=== PATIENT | male | born 1955 | race Caucasian/White ===

== ENCOUNTER 2016-12-14 18:53 | Emergency (ER) | payer OTHER | END 2016-12-14 21:03 | disposition left against medical advice (07) | LOC: UCCORT 18:53 | DX: R05 Cough (principal); Z53.21 Procedure and treatment not carried out due to patient leaving prior to being seen by health care provider | CPT/HCPCS: 99211; G0463 ==

== ENCOUNTER 2016-12-15 09:02 | Emergency (ER) | payer OTHER ==
[2016-12-15 09:34] VITALS: BP 132/81
--- NOTE | 2016-12-15 10:25 | UC ---
Throat Pain/Nasal Rohan HPI - HPI Summary HPI Summary: complaint of cough , nasal congestion that started 6 days ago cough with some white sputum occasionally entire body and muscles aches N/V on the first day of illness which has resolved sometimes his ears are painful, sore throat, denies headaches, denies fever abut has had some chills taking alkaseptzer and mucinex and cough dropswithout relief - History of Current Complaint Chief Complaint: UCRespiratory Stated Complaint: CONGESTION/COUGH Time Seen by Provider: 12/15/16 10:20 Hx Obtained From: Patient - Allergies/Home Medications Allergies/Adverse Reactions: Allergies Allergy/AdvReac Type Severity Reaction Status Date / Time No Known Allergies Allergy Verified 12/15/16 09:27 Home Medications: Home Medications Vitamin [id number] [Vitamin C & D3/Char Hips] 1 cap PO DAILY [History Confirmed 12/15/16] PMH/Surg Hx/FS Hx/Imm Hx Previously Healthy: Yes Cardiovascular History Of: Reports: Cardiac Disorders - CAD, Hypertension Respiratory History Of: Reports: COPD - Surgical History Surgical History: Yes Surgery Procedure, Year, and Place: R TKR--06/2016. BACK SX. APPY. CARDIAC STENT - Family History Known Family History: Positive: Cardiac Disease, Hypertension Negative: Diabetes - Social History Occupation: Employed Full-time Lives: With Family Alcohol Use: Weekly Substance Use Type: None Smoking Status (MU): Former Smoker Have You Smoked in the Last Year: No When Did the Patient Quit Smoking/Using Tobacco: 2005 - Immunization History Most Recent Influenza Vaccination: Not the Season Review of Systems Constitutional: Fever, Chills, Fatigue Skin: Negative Eyes: Negative ENT: Sore Throat, Nasal Discharge Respiratory: Cough Cardiovascular: Negative Gastrointestinal: Negative Genitourinary: Negative Motor: Negative Neurovascular: Negative Musculoskeletal: Myalgia Neurological: Negative Psychological: Negative All Other Systems Reviewed And Are Negative: Yes Physical Exam Triage Information Reviewed: Yes Appearance: No Pain Distress, Well-Nourished Vital Signs: Initial Vital Signs Temp 97.6 F 12/15/16 09:25 Pulse 92 12/15/16 09:25 Resp 18 12/15/16 09:25 BP 132/81 12/15/16 09:25 Pulse Ox 96 12/15/16 09:25 Vital Signs Reviewed: Yes Eyes: Positive: Conjunctiva Clear ENT: Positive: Pharyngeal erythema, Nasal congestion, Nasal drainage, TMs normal Neck: Positive: No Lymphadenopathy Respiratory: Positive: No respiratory distress, No accessory muscle use, Wheezing - wheezing throughout ll montes Cardiovascular: Positive: RRR, No Murmur, Pulses Normal Abdomen Description: Positive: Nontender, Soft Bowel Sounds: Positive: Present Musculoskeletal: Positive: No Edema Neurological: Positive: Alert Psychological Exam: Normal Skin Exam: Normal Re-Evaluation - Re-Evaluation First Eval Re-Evaluation Time: 10:55 Change: Improved Comment: less wheezing and air movement Throat Pain/Nasal Course/Dx - Course Course Of Treatment: exam completed. duoneb treatment given d/t wheezing throughout. will treat for COPD exacerabation following viral illness/most likely influenza- followup with PCP - Differential Dx/Diagnosis Differential Diagnosis/HQI/PQRI: Influenza, URI, Other - COPD excerbation Provider Diagnoses: COPD excerbation Discharge - Discharge Plan Condition: Stable Disposition: HOME Prescriptions: Albuterol HFA INHALER* [Ventolin HFA Inhaler*] 2 puff INH Q4H PRN #1 mdi PRN Reason: Wheezing Azithromycin TAB* [Zithromax TAB (Z-YSEI) 250 mg #6 tabs] 2 tab PO .TODAY, THEN 1 DAILY #1 yesi predniSONE TAB* [Deltasone TAB*] 50 mg PO DAILY #5 tab Patient Education Materials: COPD (Chronic Obstructive Pulmonary Disease) (ED) Forms: *Work Release Referrals: Aziza Davidson PA [Primary Care Provider] - Additional Instructions: Please take antibiotic as directed Use your albuterol inhaler every 4-6 hours when needed for wheezing, shortness of breath or uncontrolled coughing. Increase fluids and rest Take acetaminophen or ibuprofen for fever or pain Please review your discharge instructions. If your symptoms do not improve please call your primary care provider or return to urgent care.
[2016-12-15] MEDS ORDERED: Albuterol/Ipratropium NEB.SOL* Albuterol 2.5 MG/Ipratropium 0.5 MG 3 ML INH ONE (10:28)
== END 2016-12-15 11:10 | disposition home or self-care (01) ==
LOC: UCCORT 09:02
DX: J44.1 Chronic obstructive pulmonary disease with (acute) exacerbation (principal); Z87.891 Personal history of nicotine dependence
CPT/HCPCS: 99212; A9270-GY; G0463

== ENCOUNTER 2018-07-01 19:02 | Emergency (ER) | payer OTHER ==
[2018-07-01 19:31] VITALS: BP 136/79
[2018-07-01] MEDS ORDERED: Lidocaine 1% MPF* 2 ML VIAL INJ ONE ×2 (19:47→20:13)
--- NOTE | 2018-07-01 19:53 | UC ---
Laceration HPI - HPI Summary HPI Summary: Patient states he was cutting a cabbage about an hour ago prior to arrival. Knife slipped and he cut his third finger on left hand. He is currently taking aspirin and eliquis due to atrial fibrillation, which was finally controlled in April after cardiac ablation. The Bleeding was effectively controlled with compressive bandage. Patient denies any pain at the moment. - History Of Current Complaint Chief Complaint: UCLaceration Stated Complaint: FINGER LACERATION Time Seen by Provider: 07/01/18 19:32 Hx Obtained From: Patient Laceration Location: Finger Mechanism Of Injury: Sharp Trauma Onset/Duration: Sudden Onset, Lasting Hours Severity: Mild Pain Intensity: 2 Aggravating Factors: Nothing - Allergies/Home Medications Allergies/Adverse Reactions: Allergies Allergy/AdvReac Type Severity Reaction Status Date / Time No Known Allergies Allergy Verified 07/01/18 19:31 Home Medications: Home Medications Apixaban* [Eliquis*] 5 mg PO DAILY 07/01/18 [History Confirmed 07/01/18] Aspirin 81 mg CHEW TAB* 81 mg DAILY 07/01/18 [History Confirmed 07/01/18] Diltiazem CD CAP* [Cardizem CD CAP*] 120 mg PO DAILY 07/01/18 [History Confirmed 07/01/18] Furosemide TAB* [Lasix TAB*] 40 mg PO DAILY 07/01/18 [History Confirmed 07/01/18 ] Metoprolol Succinate [Toprol Xl] 100 mg PO DAILY 07/01/18 [History Confirmed ] Rosuvastatin Calcium 10 mg PO DAILY 07/01/18 [History Confirmed 07/01/18] Spironolactone TAB* [Aldactone TAB*] 100 mg PO DAILY 07/01/18 [History Confirmed 07/01/18] PMH/Surg Hx/FS Hx/Imm Hx Previously Healthy: Yes Endocrine History: Dyslipidemia Cardiovascular History: Cardiac Disease, Hypertension, Atrial Fibrillation GI/ History: Gastroesophageal Reflux - Surgical History Surgical History: Yes Surgery Procedure, Year, and Place: R TKR--06/2016. BACK SX. APPY. CARDIAC STENT. Cardiac ablation 04/2018 - Family History Known Family History: Positive: Cardiac Disease, Hypertension Negative: Diabetes - Social History Alcohol Use: Weekly Substance Use Type: None Smoking Status (MU): Former Smoker Have You Smoked in the Last Year: No When Did the Patient Quit Smoking/Using Tobacco: 2005 - Immunization History Most Recent Influenza Vaccination: Not the 2015/2016 Season Review of Systems Constitutional: Negative Skin: Other - laceration All Other Systems Reviewed And Are Negative: Yes Physical Exam Triage Information Reviewed: Yes Appearance: Well-Appearing, No Pain Distress, Well-Nourished Vital Signs: Initial Vital Signs Temp 97.8 F 07/01/18 19:24 Pulse 55 07/01/18 19:24 Resp 18 07/01/18 19:24 BP 136/79 07/01/18 19:24 Pulse Ox 98 07/01/18 19:24 Vital Signs Reviewed: Yes Eyes: Positive: Conjunctiva Clear ENT: Positive: Hearing grossly normal Respiratory: Positive: Chest non-tender, Lungs clear, Normal breath sounds, No respiratory distress Cardiovascular: Positive: RRR, No Murmur, Pulses Normal, Brisk Capillary Refill Musculoskeletal: Positive: Strength Intact, ROM Intact, No Edema, Other: - flexion and extension of fingers preserved. Capillary refill brisk, ulnar and radial pulses present. Skin Exam: Other - laceration on the third finger of left hand 1.5 cm in length on the ventral aspect of distal phalanx. No active bleeding Laceration Repair - Laceration Repair 1 Description: Linear Laceration Size After Repair: Length (cm) - 2cm Modified For Repair: No Anesthesia Used: 1.0% Lido Cleansing Completed Via Routine Prep: Yes Irrigation With Pressure Irrigation Device: No Closure Material: Sutures Closure Method: Single Layer Suture Of: Skin Suture Type: Prolene Laceration Course/Dx - Course/Dx Course Of Treatment: Laceration was 2cm in length, was repaired with 4 sutures ethicon 6. Patient tolerated procedure well. Dermabond applied after sutures. Instructed to come back to urgent care for suture removal in one week. - Differential Dx - Laceration/Wound Provider Diagnoses: Laceration third finger of left hand Discharge - Sign-Out/Discharge Documenting (check all that apply): Patient Departure All imaging exams completed and their final reports reviewed: No Studies - Discharge Plan Condition: Stable Disposition: HOME Patient Education Materials: Laceration (ED), Care For Your Stitches (DC) Referrals: Sylvain Hilton MD [Primary Care Provider] - Additional Instructions: please return to urgent care in 1 week for wound checkup and suture removal - Billing Disposition and Condition Condition: STABLE Disposition: Home Images Hands: 1 - linear laceration 2cm in length
[2018-07-01] MEDS ORDERED: Lidocaine 1%* 5 ML VIAL INJ ONE (20:41)
== END 2018-07-01 21:05 | disposition home or self-care (01) ==
LOC: UCCORT 19:02
DX: S61.213A Laceration without foreign body of left middle finger without damage to nail, initial encounter (principal); W26.0XXA Contact with knife, initial encounter; Y93.G1 Activity, food preparation and clean up; Y92.9 Unspecified place or not applicable; I48.91 Unspecified atrial fibrillation; Z79.82 Long term (current) use of aspirin; Z87.891 Personal history of nicotine dependence
CPT/HCPCS: 12001; 99212; G0463

== ENCOUNTER 2019-12-25 15:10 | Emergency (ER) | payer OTHER ==
[2019-12-25 15:45] VITALS: BP 125/71
--- NOTE | 2019-12-25 16:05 | UC ---
Upper Extremity HPI - HPI Summary HPI Summary: 64 yo with pain in left wrist and hand since a fall earlier today. He fell onto his buttocks when he slipped, cannot recall exactly how he fell. Persistent pain and swelling. He is mostly tender over the distal ulna. He takes apixaban for atrial fibrillation. 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 Onset/Duration: Sudden Onset Severity Initially: Moderate Severity Currently: Moderate Pain Intensity: 8 Location Of Pain: Is Discrete @ - left wrist, forearm Character: Aching Aggravating Factor(s): Movement Alleviating Factor(s): Compression, Ice Associated Signs And Symptoms: Positive: Negative - Risk Factors Non-Orthopedic Risk Factor: Negative DVT Risk Factors: Negative Septic Arthritis Risk Factor: Negative - Allergies/Home Medications Allergies/Adverse Reactions: Allergies Allergy/AdvReac Type Severity Reaction Status Date / Time No Known Allergies Allergy Verified 12/25/19 15:46 Home Medications: Home Medications Aspirin [Aspirin Adult Low Dose 81 MG] 81 mg PO DAILY 09/18/16 [History Confirmed 12/25/19] Famotidine TAB* [Pepcid 20 MG TAB*] 40 mg PO DAILY 09/18/16 [History Confirmed 12/25/19] Apixaban* [Eliquis*] 5 mg PO BID 07/01/18 [History Confirmed 12/25/19] Diltiazem CD CAP* [Cardizem CD CAP*] 240 mg PO DAILY 07/01/18 [History Confirmed 12/25/19] Furosemide TAB* [Lasix TAB*] 40 mg PO DAILY 07/01/18 [History Confirmed 12/25/19 ] Metoprolol Succinate [Toprol Xl] 50 mg PO QPM 07/01/18 [History Confirmed ] Rosuvastatin Calcium 10 mg PO QPM 07/01/18 [History Confirmed 12/25/19] Spironolactone TAB* [Aldactone TAB*] 100 mg PO DAILY 07/01/18 [History Confirmed 12/25/19] Umeclidin/Vilant 62.5 MDI(NF) [ANORO 62.5/25 Ellipta DEVICE (NF)] 1 inh QAM [History Confirmed 12/25/19] PMH/Surg Hx/FS Hx/Imm Hx Cardiovascular History: Cardiac Disease, Hypertension, Atrial Fibrillation Respiratory History: COPD - Surgical History Surgical History: Yes Surgery Procedure, Year, and Place: R TKR--06/2016. BACK SX. APPY. CARDIAC STENT. Cardiac ablation 04/2018. RIGHT shoulder 05/2019. Cardiac ablation scheduled for January 2020 - Family History Known Family History: Positive: Cardiac Disease, Hypertension Negative: Diabetes - Social History Lives: With Family Alcohol Use: Rare Substance Use Type: None Smoking Status (MU): Former Smoker Have You Smoked in the Last Year: No When Did the Patient Quit Smoking/Using Tobacco: 2005 - Immunization History Most Recent Influenza Vaccination: Not the 2015/2016 Season Most Recent Tetanus Shot: May 2019 Review of Systems All Other Systems Reviewed And Are Negative: Yes Constitutional: Positive: Negative Skin: Positive: Negative Eyes: Positive: Negative ENT: Positive: Negative Respiratory: Positive: Negative Cardiovascular: Positive: Other - currently in sinus rhythm. Gastrointestinal: Positive: Negative Genitourinary: Positive: Negative Motor: Positive: Decreased ROM Neurovascular: Positive: Negative Musculoskeletal: Positive: Arthralgia Neurological/Mental Status: Positive: Negative Psychological: Positive: Negative Is Patient Immunocompromised?: No Physical Exam Triage Information Reviewed: Yes Appearance: Pain Distress - mild to moderate Vital Signs: Initial Vital Signs Temp 97.4 F 12/25/19 15:39 Pulse 51 12/25/19 15:39 Resp 16 12/25/19 15:39 BP 125/71 12/25/19 15:39 Pulse Ox 98 12/25/19 15:39 Vital Signs Reviewed: Yes ENT: Positive: Pharynx normal Respiratory: Positive: Lungs clear, Normal breath sounds Cardiovascular: Positive: RRR, No Murmur, Bradycardia Musculoskeletal Exam: Other - TTP distal ulna, swelling left wrist and hand with decreased range of motion and tenderness throughout. Neurological: Positive: Alert, Muscle Tone Normal Psychological Exam: Normal Skin Exam: Other - small agrasion base of second digit. Hand is warm and well perfused. Diagnostics - Radiology No standard instances Radiology Interpretation Completed By: Radiologist - Patient Name: NELI ESPINO Medical Record#: [id number] Ordering Physician: Amita Bernstein MD Acct.#: [id number] : Age: 64 Sex: M Location: [facility] Exam Date: 12/25/19 1603 ADM Status: REG ER Order Information: WRIST LEFT 3+ VWS Accession Number : [id number] CPT: 28819 INDICATION: Left wrist injury. TECHNIQUE: 3 views of the left wrist were obtained. FINDINGS: There is diffuse soft tissue swelling most prominent dorsal to the carpal bones. On the lateral image note is made of a fracture fragment dorsal to the carpal bones possibly arising from the triquetrum bone although nonspecific. There is a lucent lesion in the proximal capitate bone measuring 5 mm in size with a faint sclerotic margin suggestive of a subchondral cyst. IMPRESSION: THERE IS A FRACTURE FRAGMENT DORSAL TO THE CARPAL BONES. < Electronically signed by Reagan Lancaster MD in [place]> 12/25/19 1621 Dictated By: Reagan Lancaster MD Dictated Date/Time: 12/25/19 1619 Transcribed Date/Time: 1619 Copy to: CC:Sylvain Hilton MD; Amita Bernstein MD Imaging - [facility] Imaging - [place] [facility] [address] [place] [address] ph [phone]) ph ([phone]) ph ([phone]) This report is only to be considered final once signed by the Provider(s) as displayed in the "<Electronically Signed by >" field (s). Absence of a signature indicates the report is in a draft status and still needs to be finalized. In the event this document was created by someone other than the signing Provider, the individual initiating the document will be listed in the "Entered by:" or "Dictated by:" montes. 1 of 1 Upper Extremity Course/Dx - Course Course Of Treatment: splint to left wrist with orthopedic follow up; discussed possible fracture in the carpal bones. He has done several surgeries with [facility] and will follow up there. - Differential Dx/Diagnosis Differential Diagnosis/HQI/PQRI: Fracture (Closed), Strain, Sprain Provider Diagnosis: Fracture, carpal bone closed Discharge ED - Sign-Out/Discharge Documenting (check all that apply): Patient Departure All imaging exams completed and their final reports reviewed: Yes - Discharge Plan Condition: Stable Disposition: HOME Patient Education Materials: Wrist Fracture in Adults (ED) Referrals: Sylvain Hilton MD [Primary Care Provider] - Additional Instructions: The xray shows a possible fracture in one of the carpal bones of the wrist. Keep the splint applied, and call [facility] for an evaluation within the next 2 ro 3 days. PLEASE SCHEDULE A VISIT WITH [facility] FOR EVALUATION--[phone] apply ice to the wrist and use acetaminophen 650mg every 6 hours as needed for control of pain. - Billing Disposition and Condition Condition: STABLE Disposition: Home
== END 2019-12-25 17:03 | disposition home or self-care (01) ==
LOC: UCCORT 15:10
DX: S62.102A Fracture of unspecified carpal bone, left wrist, initial encounter for closed fracture (principal); I10 Essential (primary) hypertension; J44.9 Chronic obstructive pulmonary disease, unspecified; I48.91 Unspecified atrial fibrillation; W01.0XXA Fall on same level from slipping, tripping and stumbling without subsequent striking against object, initial encounter; Y92.9 Unspecified place or not applicable; Z79.82 Long term (current) use of aspirin; Z87.891 Personal history of nicotine dependence; Z79.899 Other long term (current) drug therapy
CPT/HCPCS: 99212; G0463